=== PATIENT | female | born 1995 | race Caucasian/White ===

== ENCOUNTER 2025-05-11 12:48 | Emergency (ER) | payer OTHER ==
[~2025-05-11] VITALS: Ht 170.2 cm; Wt 59.9 kg
[2025-05-11 12:59] VITALS: BP 131/71; TEMP 98.2; O2SAT 98
== END 2025-05-11 16:05 | disposition home or self-care (01) ==
LOC: ER 12:53
DX: S93.401A Sprain of unspecified ligament of right ankle, initial encounter (principal); Z90.89 Acquired absence of other organs; X50.1XXA Overexertion from prolonged static or awkward postures, initial encounter; Y93.89 Activity, other specified; Y92.89 Other specified places as the place of occurrence of the external cause; Y99.8 Other external cause status
CPT/HCPCS: 73610-TC